=== PATIENT | female | born 1970 | race Hispanic/Latino ===

== ENCOUNTER 2022-02-28 15:27 | Outpatient (CLI) | payer BC | END 2022-02-28 15:28 | disposition home or self-care (01) | LOC: BICULT 15:27 | PROVIDERS: ATTEND Internal Medicine Nephrology | DX: N18.2 Chronic kidney disease, stage 2 (mild) (principal) | CPT/HCPCS: 76770 ==

== ENCOUNTER 2024-07-16 15:37 | Outpatient (CLI) | payer BC | END 2024-07-16 15:38 | disposition home or self-care (01) | LOC: BICMAMMO 15:37 | PROVIDERS: ATTEND Nurse Practitioner Family | DX: Z12.31 Encounter for screening mammogram for malignant neoplasm of breast (principal); N64.89 Other specified disorders of breast; Z91.89 Other specified personal risk factors, not elsewhere classified | CPT/HCPCS: 77063; 77067 ==